=== PATIENT | male | born 1955 | race Caucasian/White ===

== ENCOUNTER 2023-10-05 03:39 | Emergency (ER) | payer MEDICARE, SELFPAY ==
[2023-10-05 03:47] VITALS: BP 125/86
--- NOTE | 2023-10-05 03:50 | ED.GENMED ---
History of Present Illness
<Dilan Marin MD - Last Filed: 10/05/23 06:04>
General
Chief Complaint: Chest Pain
Source: patient
Exam Limitations: none
Time Seen by Provider: 10/05/23 03:44
Nursing documentation reviewed up to this point in time: agreed with
History of Present Illness
History of Present Illness:
Patient presents to ED for evaluation secondary to chest pain with shortness of breath, upon waking up this morning. Patient with history of chronic alcoholism, who has been sober for the past 2 years, does report drinking heavily for the past 2
days, celebrate his birthday. Patient has multiple bruises noted on his body and over his right eye, but does not recall falling down. Unfortunately, patient has had similar blacking out episodes in the past when he was drinking heavily. Per
spouse at bedside, these events including multiple falls, happened while she has been away for the past 3 days. Patient at the time of evaluation, denies headache. Denies blurred vision. Denies dizziness. Denies nausea or vomiting. Denies loss
of sensation or weakness. Patient does admit to having had alcohol and not eating much food. Denies recent illness. Patient does not take any blood thinning medications.
Past History
<Dilan Marin MD - Last Filed: 10/05/23 06:04>
Past History
ED Past Medical History: HTN and Other (Kidney stone)
ED Past Surgical History: None
Social History
Tobacco: Non-smoker
Alcohol: Binge drinker
Drug: None
Personal:
Living: with family
Employment: Employed
Family History
Family History: Hypertension
Review of Systems
<Dilan Marin MD - Last Filed: 10/05/23 06:04>
Review of Systems
Allergies reviewed?: Yes
All Other Systems: ROS reviewed and negative except as documented in HPI and ROS
Constitutional: Reports no symptoms
EENT: Reports no symptoms
Respiratory: Reports trouble breathing
Cardiac: Reports chest pain
ABD/GI: Reports no symptoms
: Reports no symptoms
Musculoskeletal: Reports no symptoms
Skin: Reports other (Bruising)
Neurological: Reports no symptoms; Denies dizzy, headache, weakness or numbness
Phy Exam
<Dilan Marin MD - Last Filed: 10/05/23 06:04>
Physical Exam
Physical Exam:
Physical Exam
General: no apparent distress, not acutely ill. afebrile
Head: right periorbital ecchymosis noted.
Neck: supple. normal range of motion.
Heart: s1/s2 regular rate and rhythm, no murmur. equal radial pulses.
Lungs: no acute respiratory distress. clear bilaterally. right anterior chest wall tenderness to palpation, without ecchymosis/swelling/erythema. no deformity.
Abdomen: normal bowel sounds. not tender.
Neuro: alert and oriented. no focal neurological deficits
Skin: ecchymosis noted over left forearm/wrist/legs, without tenderness.
Psychiatric: well kept. interactive and cooperative
Extremities: no edema. no calf tenderness.
Scores
<Warren Ahn PA-C - Last Filed: 10/05/23 09:36>
Heart Score for Chest Pain Patients
STEMI patient?: Not applicable
Course
<Dilan Marin MD - Last Filed: 10/05/23 06:04>
Orders/Labs/Results
Orders:
Orders
10/05/23 03:43
Electrocardiogram (*1) Urgent
Reason for Study: Other
Other Reason for Exam: Respiratory Distress
Cardiac Monitoring- Treatment ONCE
EKG- Treatment ONCE
O2 Therapy [RESP] Urgent
Titrate/Wean O2 to maintain O2 sat greater than (%): 93
Special Instructions: TO MAINTAIN CONTINUOUS O2 SATS >/= 93%
Pulse Ox/cont/shift [RESP] Urgent
Quantity: 1
Special Instructions: continuous pulse ox
10/05/23 04:06
CT Cervical Spine W/o Iv Contr Urgent
Comment:
Reason For Exam: trauma
CT Chest With Iv Contrast Urgent
Comment:
Reason For Exam: trauma
CT Head W/o Iv Contrast Urgent
Comment:
Reason For Exam: trauma
10/05/23 04:10
Alcohol Urgent
Complete Blood Count/With Diff Urgent
Comprehensive Metabolic Panel Urgent
Magnesium Urgent
Comment: ADDED
NT-proBNP Urgent
Troponin I Urgent
10/05/23 04:11
Add On- LAB Urgent
Tests Added?: magnesium, alcohol level
10/05/23 05:06
CR Hand - Left Min 3 Views Urgent
Comment:
Reason For Exam: trauma
CR Wrist - Left Min 3 Views Urgent
Comment:
Reason For Exam: trauma
10/05/23 05:24
0.9% Sodium Chloride 500 ml [Nss] 500 ml IV BOLUS
Lorazepam [Ativan] 1 mg IV NOW STA
Abnormal Lab Results
10/05/23
04:10
Absolute Lymphs (auto) 3.9 H 10^3/uL
(1.2-3.4)
Absolute Monos (auto) 1.0 H 10^3/uL
(0.1-0.6)
Monocytes % 9.8 H %
(1.7-9.3)
Carbon Dioxide 16 L mmol/L
(22-30)
BUN 21 H mg/dl
(9-20)
Glucose 108 H mg/dl
(70-99)
10/05/23 04:10
10/05/23 04:10
Vital Signs
Initial and Last Documented VS:
Initial Vital Signs
Temp Pulse Resp BP Pulse Ox
97.8 F 86 20 125/86 96
10/05/23 03:47 10/05/23 03:47 10/05/23 03:47 10/05/23 03:47 10/05/23 03:47
Last Documented Vital Signs
Temp Pulse Resp BP Pulse Ox
97.8 F 80 20 118/86 94
10/05/23 03:47 10/05/23 06:30 10/05/23 06:30 10/05/23 06:00 10/05/23 06:30
<Warren Ahn PA-C - Last Filed: 10/05/23 09:36>
Orders/Labs/Results
Orders:
Orders
10/05/23 03:43
Electrocardiogram (*1) Urgent
Reason for Study: Other
Other Reason for Exam: Respiratory Distress
Cardiac Monitoring- Treatment ONCE
EKG- Treatment ONCE
O2 Therapy [RESP] Urgent
Titrate/Wean O2 to maintain O2 sat greater than (%): 93
Special Instructions: TO MAINTAIN CONTINUOUS O2 SATS >/= 93%
Pulse Ox/cont/shift [RESP] Urgent
Quantity: 1
Special Instructions: continuous pulse ox
10/05/23 04:06
CT Cervical Spine W/o Iv Contr Urgent
Comment:
Reason For Exam: trauma
CT Chest With Iv Contrast Urgent
Comment:
Reason For Exam: trauma
CT Head W/o Iv Contrast Urgent
Comment:
Reason For Exam: trauma
10/05/23 04:10
Alcohol Urgent
Complete Blood Count/With Diff Urgent
Comprehensive Metabolic Panel Urgent
Magnesium Urgent
Comment: ADDED
NT-proBNP Urgent
Troponin I Urgent
10/05/23 04:11
Add On- LAB Urgent
Tests Added?: magnesium, alcohol level
10/05/23 05:06
CR Hand - Left Min 3 Views Urgent
Comment:
Reason For Exam: trauma
CR Wrist - Left Min 3 Views Urgent
Comment:
Reason For Exam: trauma
10/05/23 05:24
0.9% Sodium Chloride 500 ml [Nss] 500 ml IV BOLUS
Lorazepam [Ativan] 1 mg IV NOW STA
Abnormal Lab Results
10/05/23
04:10
Absolute Lymphs (auto) 3.9 H 10^3/uL
(1.2-3.4)
Absolute Monos (auto) 1.0 H 10^3/uL
(0.1-0.6)
Monocytes % 9.8 H %
(1.7-9.3)
Carbon Dioxide 16 L mmol/L
(22-30)
BUN 21 H mg/dl
(9-20)
Glucose 108 H mg/dl
(70-99)
10/05/23 04:10
10/05/23 04:10
Vital Signs
Initial and Last Documented VS:
Initial Vital Signs
Temp Pulse Resp BP Pulse Ox
97.8 F 86 20 125/86 96
10/05/23 03:47 10/05/23 03:47 10/05/23 03:47 10/05/23 03:47 10/05/23 03:47
Last Documented Vital Signs
Temp Pulse Resp BP Pulse Ox
97.8 F 80 20 118/86 94
10/05/23 03:47 10/05/23 06:30 10/05/23 06:30 10/05/23 06:00 10/05/23 06:30
<Dilan Marin MD - Last Filed: 10/05/23 06:04>
MDM/Problems Addressed
MDM/Problems Addressed:
History and exam consistent with likely chest wall contusion from multiple falls. Highly doubt ACS.
CT report reviewed and discussed. No acute findings.
Patient given Ativan and IV fluids, with improvement symptoms, suggestive of potential withdrawal component to his presentation.
Patient does not wish to pursue alcohol rehab/this time. As such, patient will be discharged home, in stable condition, to the care of his spouse, with recommendation to stop drinking alcohol along with supportive care at home, including hydration.
Patient will be given short course of Ativan, to be used as needed at home. Patient and spouse expressed understanding at time of discharge.
<Dilan Marin MD - Last Filed: 10/05/23 06:04>
*EKG
Interpreted by ED Provider?: Yes
EKG Intrepretation Date: 10/05/23
Heart Rate: 83
Rate: normal
Rhythm: sinus
[place]: left axis deviation
Interval: normal interval
QRS Pattern: normal QRS
<Warren Ahn PA-C - Last Filed: 10/05/23 09:36>
*Critical Care Note
Total Time (30-74mins, 75-104mins- exclusive of procedures): Not Applicable
<Warren Ahn PA-C - Last Filed: 10/05/23 09:36>
Update Note
Update Note:
9:30 AM: Received call from radiology that patient has a finding of left distal radius fracture. Patient was not splinted prior to his discharge. I contacted the patient via telephone and left a voicemail that patient needs to contact us back to
discuss these results and will likely need to come back to the emergency department to have a splint placed.
ED Attending Note
<Dilan Marin MD - Last Filed: 10/05/23 06:04>
-
Portions of this chart may have been created with voice recognition software.� Occasional wrong word or��sound alike� substitutions may have occurred due to the inherent limitations of voice recognition software.
Discharge Plan
Departure
Patient Disposition: Home (Routine Discharge)
Date of Disposition: 10/05/23
Time of Disposition: 05:56
Patient with high blood pressure during this ER visit?: Yes
Discharge Problem:
Alcohol withdrawal, Contusion, Musculoskeletal pain
Instructions: Alcohol withdrawal, Muscle and bone pain - Discharge instructions, Contusion
Prescriptions:
New
lorazepam [Ativan] 0.5 mg tablet
0.5 mg PO TID PRN (Reason: alcohol withdrawal) Qty: 5 0RF
No Action
lorazepam 0.5 MG tablet
0.5 mg PO Q4HPRN PRN (Reason: anxiety, withdrawal) Qty: 10 0RF
Referrals:
NONE,* [Family Provider] -
Stand Alone Forms: Return to Work
Activity Restrictions/Additional Instructions:
As discussed, please follow-up with your primary care physician for reevaluation. Your prescription has been sent electronically to [facility] pharmacy on . in [place].
Interventions
Interventions:
*Risk Screen - Suicide Last Done: 10/05/23 04:03
*General Assessment Last Done: 10/05/23 04:03
*Neglect/Abuse Screening Last Done: 10/05/23 04:03
*ED COVID-19 Vaccine History Last Done: 10/05/23 06:39
*Nursing Disposition Last Done: 10/05/23 06:39
ED- Cardiac Assessment Last Done: 10/05/23 03:59
ED- Pulmonary Assessment Last Done: 10/05/23 03:59
Discharge Date and Time
Discharge Date/Time: 10/05/23 06:39
Print Language: YI
[2023-10-05 03:54] LABS: Glucose - Point of Care 99 mg/dl (70-99)
[2023-10-05 03:58] VITALS: BMI 36.9
[2023-10-05 04:18] LABS: % Basophils 0.9 % (0-2); % Eosinophils 0.9 % (0-6); % Immature Granulocytes 0.2 % (0-0.5); % Lymphocytes 39.7 % (20.5-51.1); % Monocytes 9.8 % (1.7-9.3); % Neutrophils 48.5 % (42.2-75.2); Absolute Basophils 0.1 10^3/uL (0-0.2); Absolute Eosinophils 0.1 10^3/uL (0-0.7); Absolute Lymphocytes 3.9 10^3/uL (1.2-3.4); Absolute Neutrophils 4.7 10^3/uL (1.4-6.5); Hematocrit 46.5 % (39.0-52.0); Hemoglobin 16.1 g/dL (13.0-18.0); Mean Corp Hgb Conc. 34.6 g/dL (33.0-37.0); Mean Corpuscular Hgb 30.8 pg (27.0-31.0); Mean Corpuscular Volume 89.1 fL (80.0-94.0); Mean Platelet Volume 9.5 fL (7.4-10.4); Nucleated Red Blood Cells % 0 % (-); Platelet Count 345 10^3/uL (130-400); Red Blood Cell Count 5.22 10^6/uL (4.70-6.10); Red Cell Dist. Width 13.3 % (11.5-14.5); White Blood Cell Count 9.7 10^3/uL (4.8-10.8)
[2023-10-05 04:41] LABS: ALT (SGPT) 26 U/L (0-50); AST (SGOT) 57 U/L (17-59); Albumin 4.5 g/dl (3.5-5.0); Alcohol 278 mg/dl; Alkaline Phosphatase 81 U/L (38-126); Blood Urea Nitrogen 21 mg/dl (9-20); Carbon Dioxide 16 mmol/L (22-30); Chloride 102 mmol/L (98-107); Estimated Creatinine Clearance 78 ml/min; Glucose 108 mg/dl (70-99); Magnesium 2.2 mg/dl (1.6-2.3); Potassium 4.3 mmol/L (3.5-5.1); Sodium 141 mmol/L (135-145); Total Bilirubin 0.6 mg/dl (0.2-1.3); Total Protein 7.3 g/dl (6.3-8.2); eGFR > 60.00
[2023-10-05 04:52] LABS: NT-proBNP 265 pg/ml; Troponin I 0.032 ng/ml
[2023-10-05] MEDS: NSS 500 IV (05:31)
[2023-10-05] MEDS: ATIVAN 1 MG IV (05:31)
[2023-10-05 05:44] VITALS: BP 121/89
[2023-10-05 06:00] VITALS: BP 118/86
== END 2023-10-05 06:39 | disposition home or self-care (01) ==
LOC: EMR 03:39
PROVIDERS: EMERGENCY PHYSICIAN Emergency Medicine
DX: F10.939 Alcohol use, unspecified with withdrawal, unspecified (principal); S00.11XA Contusion of right eyelid and periocular area, initial encounter; M79.18 Myalgia, other site; X58.XXXA Exposure to other specified factors, initial encounter; I10 Essential (primary) hypertension; R29.6 Repeated falls; Z82.49 Family history of ischemic heart disease and other diseases of the circulatory system; Z87.442 Personal history of urinary calculi
CPT/HCPCS: 99284; 96374; 96361; 70450; 71260; 72125; 73110; 73130; 80053; 82077; 82962; 83735; 83880; 84484; 85025; 93005; Q9967